=== PATIENT | male | born 1985 | race Caucasian/White ===

== ENCOUNTER 2016-11-04 18:23 | Outpatient (CLI) | payer MEDICAID | END 2016-11-04 18:24 | disposition critical access hospital (66) | LOC: EMS 18:23 | PROVIDERS: ATTEND Surgery | DX: S09.90XA Unspecified injury of head, initial encounter (principal); W18.30XA Fall on same level, unspecified, initial encounter; Y93.01 Activity, walking, marching and hiking | CPT/HCPCS: A0425; A0429 ==

== ENCOUNTER 2016-11-04 18:46 | Emergency (ER) | payer MEDICAID ==
--- NOTE | 2016-11-04 18:57 | ED Physician Documentation ---
PD HPI HEAD INJURY - Stated complaint Stated Complaint: GLF - Chief complaint Chief Complaint: Neuro - History obtained from History obtained from: Patient - History of Present Illness Mechanism of head injury: Fell (he had been drinking last night and says he fell as he was walking home, struck head. Does not remember it well. Today with feeling of lightheaded, slightly confused, and significant headache right side. No history of migraines per se.) Where head injury occurred: Street Timing - onset: Last night Associated symptoms: LOC (unsure), AMS (he feels lightheaded and slightly slow thinking today). No: Nausea / vomiting, Neck pain Symptoms worsen with: Palpation Contributing factors: Intoxicated (last night), Other (he had resumed a prior antidepressant 3 days ago, had stopped it a few months ago but wanted to be back on it. Resumed prior dose.). No: Anticoagulated Similar symptoms before: Has not had sx before Recently seen: Not recently seen Review of Systems Constitutional: denies: Fever, Chills Nose: denies: Rhinorrhea / runny nose, Congestion Throat: denies: Sore throat Cardiac: denies: Chest pain / pressure Respiratory: denies: Cough GI: reports: Nausea. denies: Abdominal Pain, Vomiting, Diarrhea Skin: denies: Abrasion (s), Laceration (s) Musculoskeletal: denies: Neck pain, Back pain Neurologic: reports: Confused, Headache, Head injury. denies: Focal weakness, Numbness, Near syncope PD PAST MEDICAL HISTORY - Past Medical History Cardiovascular: None Respiratory: None Neuro: None Endocrine/Autoimmune: None Psych: Depression, Anxiety - Past Surgical History Past Surgical History: No General: Other - Present Medications Home Medications: Ambulatory Orders Medication Instructions Recorded Confirmed FLUoxetine [PROzac] 20 mg PO DAILY 04/05/16 11/04/16 Hydrocodone/Acetaminophen [Sidney 1 each PO Q6H PRN #15 tablet 11/04/16 5-325 Tablet] Ondansetron Odt [Zofran] 4 mg TL Q6H PRN #15 tablet 11/04/16 - Allergies Allergies/Adverse Reactions: Allergies Allergy/AdvReac Type Severity Reaction Status Date / Time venom-honey bee Allergy Intermediate Edema Verified 04/05/16 20:39 [bee venom (honey bee)] - Social History Does the pt smoke?: Yes Smoking Status: Current every day smoker Does the pt drink ETOH?: Yes Does the pt have substance abuse?: Yes - Immunizations Immunizations are current?: Yes Immunizations: TDAP current <10years - POLST Patient has POLST: No PD ED PE NORMAL - Vitals Vital signs reviewed: Yes - General General: Alert and oriented X 3, No acute distress, Well developed/nourished - HEENT HEENT: PERRL, EOMI, Pharynx benign, Other (tender with small swelling right temporal area. 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 No: Normal affect (somewhat anxious) Results - Vitals Vitals: Vital Signs - 24 hr 11/04/16 11/04/16 18:47 20:14 Temperature 37.0 C Heart Rate 65 68 Respiratory 16 18 Rate Blood Pressure 158/92 H 135/64 H O2 Saturation 99 99 Oxygen O2 Source Room air - Rads (name of study) head CT Radiology: Prelim report reviewed, EMP read contemporaneously (no acute findings ) PD MEDICAL DECISION MAKING - ED course Complexity details: considered differential (he had struck head when fell last night so may have some concussive symptoms. He had resumed prior antidepressant 3 days ago, so could have some lightheaded from that. And also had drank heavily so some hangover, plus mix with the antidepressant. So several potential causes. Head CT is okay. He does have some anxiety overlay. Main issue is headache so treating for that. Rest should taper down symptoms. ), d/w patient Departure - Departure Disposition: 01 Home, Self Care Clinical Impression: Light-headed feeling, Medication side effect Headache Qualifiers: Headache type: unspecified Headache chronicity pattern: acute headache Intractability: not intractable Qualified Code(s): R51 - Headache Mild concussion Qualifiers: Encounter type: initial encounter Loss of consciousness presence/duration: without LOC Qualified Code(s): S06.0X0A - Concussion without loss of consciousness, initial encounter Condition: Stable Record reviewed to determine appropriate education?: Yes Instructions: ED Cephalgia Unspecified, ED Concussion Prescriptions: Hydrocodone/Acetaminophen [Sidney 5-325 Tablet] 1 each PO Q6H PRN #15 tablet PRN Reason: Pain Ondansetron Odt [Zofran] 4 mg TL Q6H PRN #15 tablet PRN Reason: Nausea / Vomiting Comments: Your symptoms may be from the head injury last night, so mild concussive symptoms. It could also be somewhat from resuming your antidepressant (combined with some alcohol last night) can give the same type of symptoms. These usually taper down once on the medication again a week. Drink lots of fluids. Zofran if needed for nausea. Tylenol or hydrocodone as needed for headache, though for short term only so as to not give more side effects. Avoid alcohol the next week or so. The symptoms from either mild head injury or the new medication would both improved over the next few days; recheck if they do not. Discharge Date/Time: 11/04/16 20:29
[2016-11-04] MEDS ORDERED: ACETAMINOPHEN 325 MG TABLET PO STA (19:07)
[2016-11-04] MEDS ORDERED: LORazepam 0.5 MG TABLET PO STA (19:07)
[2016-11-04] MEDS ORDERED: ONDANSETRON ODT 4 MG TABLET TL STA (19:07)
[2016-11-04] MEDS ORDERED: LORazepam 0.5 MG TABLET ONE (19:14)
[2016-11-04] MEDS ORDERED: ONDANSETRON ODT 4 MG TABLET ONE (19:15)
[2016-11-04] MEDS ORDERED: ACETAMINOPHEN 325 MG TABLET PO ONE (19:15)
--- NOTE | 2016-11-04 19:46 | CT Preliminary Report ---
Exam: CT Head W/O IMPRESSION: Normal head CT. [facility] SITE ID: [id number]
--- NOTE | 2016-11-04 19:49 | CT Report ---
EXAM: CT HEAD EXAM DATE: 11/04/2016 07:25 PM. CLINICAL HISTORY: Fall with head injury overnight. Headache/Shaky. COMPARISON: None. TECHNIQUE: Multiaxial CT images were obtained from the foramen magnum to the vertex. IV contrast: Non e. Reformats: Coronal. In accordance with CT protocol optimization, one or more of the following dose reduction techniques w ere utilized for this exam: automated exposure control, adjustment of mA and/or KV based on patient s ize, or use of iterative reconstructive technique. FINDINGS: Parenchyma: No intraparenchymal hemorrhage. No evidence of mass, midline shift, or CT findings of inf arction. Zaragoza-white differentiation is distinct. Extraaxial Spaces: Normal for age. No subdural or epidural collections identified. Ventricles: Normal in size and position. Sinuses: Imaged paranasal sinuses, orbits, and mastoids show no significant abnormality. Bones: No evidence of fracture or calvarial defect. Other: None. IMPRESSION: Normal head CT. [facility] Referring Provider Line: [phone] SITE ID: [id number]
[2016-11-04] MEDS ORDERED: HYDROcod/ACETAM 5/325 MG TABLET PO STA (20:08)
[2016-11-04] MEDS ORDERED: HYDROcod/ACET 5/325 Prepack 6 PO ONE ×2 (20:08→20:10)
[2016-11-04] MEDS ORDERED: HYDROcod/ACETAM 5/325 MG TABLET ONE (20:09)
[2016-11-04 20:15] VITALS: BP 135/64
== END 2016-11-04 20:29 | disposition home or self-care (01) ==
LOC: EDUNIT# → ED 18:46
DX: S06.0X0A Concussion without loss of consciousness, initial encounter (principal); W18.30XA Fall on same level, unspecified, initial encounter; Y93.01 Activity, walking, marching and hiking; Y92.410 Unspecified street and highway as the place of occurrence of the external cause; R51 Headache; R42 Dizziness and giddiness; T43.225A Adverse effect of selective serotonin reuptake inhibitors, initial encounter; F41.9 Anxiety disorder, unspecified; F17.200 Nicotine dependence, unspecified, uncomplicated
CPT/HCPCS: 70450; 99283; 99284; A9270; Q0162

== ENCOUNTER 2017-02-06 09:22 | Emergency (ER) | payer MEDICAID ==
[2017-02-06 09:33] VITALS: BP 122/71
[2017-02-06] MEDS ORDERED: AMOXICILLIN 250 MG CAPSULE PO STA (12:07)
[2017-02-06] MEDS ORDERED: DEXAMETHASONE 10 MG/ML VIAL PO STA (12:07)
[2017-02-06] MEDS ORDERED: AMOXICILLIN 250 MG CAPSULE PO ONE (12:19)
[2017-02-06] MEDS ORDERED: DEXAMETHASONE 10 MG/ML VIAL ONE (12:19)
[2017-02-06] MEDS ORDERED: CHERRY SYRUP 10 ML UDC PO ONE (12:19)
--- NOTE | 2017-02-06 12:29 | ED Physician Documentation ---
History of Present Illness - Stated complaint Stated Complaint: RT SIDE FACE SWELLING - Chief complaint Chief Complaint: Heent - Additonal information Additional information: hx from pt 31 male upper right premolar decay and pain with facial swelling has a dentist and will call to schedule Review of Systems Constitutional: denies: Fever Throat: reports: Dental pain / toothache Immunocompromised: denies: Immunocompromised PD PAST MEDICAL HISTORY - Past Medical History Past Medical History: No Cardiovascular: None Respiratory: None Neuro: None Endocrine/Autoimmune: None Psych: Depression, Anxiety - Past Surgical History Past Surgical History: Yes General: Other - Present Medications Home Medications: Ambulatory Orders Medication Instructions Recorded Confirmed Amoxicillin 500 mg PO Q8H #30 capsule 02/06/17 Ibuprofen [Motrin] 400 mg PO Q6H PRN #30 tablet 02/06/17 traMADol [Ultram] 50 mg PO Q6H PRN #6 tablet 02/06/17 - Allergies Allergies/Adverse Reactions: Allergies Allergy/AdvReac Type Severity Reaction Status Date / Time venom-honey bee Allergy Intermediate Edema Verified 04/05/16 20:39 [bee venom (honey bee)] - Social History Does the pt smoke?: Yes Smoking Status: Current every day smoker Does the pt drink ETOH?: Yes Does the pt have substance abuse?: No - Immunizations Immunizations are current?: Yes Immunizations: TDAP current <10years - POLST Patient has POLST: No PD ED PE NORMAL - Vitals Vital signs reviewed: Yes - HEENT HEENT: Other (no trismus, right upper premolar decay and TTP without visible abscess to drain, mild facial swelling to upper lip and cheek region, no sublingual) - Cardiac Cardiac: RRR - Respiratory Respiratory: No respiratory distress, Clear bilaterally - Neuro Neuro: Alert and oriented X 3 Results - Vitals Vitals: Vital Signs - 24 hr 02/06/17 09:31 Temperature 37.1 C Heart Rate 75 Respiratory 16 Rate Blood Pressure 122/71 O2 Saturation 100 Oxygen O2 Source Room air Departure - Departure Disposition: 01 Home, Self Care Clinical Impression: Dental infection Condition: Good Instructions: ED Dental Abscess Facial Cellulitis Prescriptions: Amoxicillin 500 mg PO Q8H #30 capsule Ibuprofen [Motrin] 400 mg PO Q6H PRN #30 tablet PRN Reason: Pain traMADol [Ultram] 50 mg PO Q6H PRN #6 tablet PRN Reason: Severe Pain Comments: Please follow up with your dentist as soon as possible Forms: Activity restrictions
== END 2017-02-06 12:43 | disposition home or self-care (01) ==
LOC: ED 09:22
DX: K04.7 Periapical abscess without sinus (principal); F17.200 Nicotine dependence, unspecified, uncomplicated
CPT/HCPCS: 99283; A9270

== ENCOUNTER 2017-08-09 08:55 | Emergency (ER) | payer MEDICAID ==
[2017-08-09 09:02] VITALS: BP 144/95
--- NOTE | 2017-08-09 10:03 | ED Physician Documentation ---
PD HPI HEENT - Stated complaint Stated Complaint: SWOLLEN RT SIDE FACE - Chief complaint Chief Complaint: Heent - History obtained from History obtained from: Patient - History of Present Illness Timing - onset: How many days ago (3) Timing - duration: Days (3) Timing - details: Gradual onset, Still present Location: Tooth Improves: Medication, Heat Associated symptoms: Facial swelling Similar symptoms before: Diagnosis (abcessed tooth) Recently seen: Not recently seen - Additional information Additional information: 32-year-old previously well male has developed pain and swelling in his mouth and now swelling in his face related to a bad tooth on the right upper. He has had something similar to this happen to him previously with the same tooth. He has a broken tooth and a second tooth over the top of that. He does have a bubble in the roof of his mouth that he can feel is tender. Review of Systems Constitutional: denies: Fever Eyes: denies: Decreased vision Ears: denies: Ear pain Nose: denies: Rhinorrhea / runny nose, Congestion Throat: reports: Dental pain / toothache, Oral lesions / sores. denies: Sore throat Cardiac: denies: Chest pain / pressure Respiratory: denies: Dyspnea, Cough GI: denies: Vomiting PD PAST MEDICAL HISTORY - Past Medical History Cardiovascular: None Respiratory: None Neuro: None Endocrine/Autoimmune: None Psych: Depression, Anxiety - Past Surgical History Past Surgical History: Yes General: Other - Present Medications Home Medications: Ambulatory Orders Medication Instructions Recorded Confirmed Amoxicillin 875 mg PO BID #20 tablet 08/09/17 - Allergies Allergies/Adverse Reactions: Allergies Allergy/AdvReac Type Severity Reaction Status Date / Time venom-honey bee Allergy Intermediate Edema Verified 08/09/17 09:02 [bee venom (honey bee)] - Social History Does the pt smoke?: Yes Smoking Status: Current every day smoker Does the pt drink ETOH?: Yes Does the pt have substance abuse?: No - Immunizations Immunizations are current?: Yes Immunizations: TDAP current <10years - POLST Patient has POLST: No PD ED PE NORMAL - Vitals Vital signs reviewed: Yes (hypertensive ) - General General: Alert and oriented X 3, No acute distress, Well developed/nourished - HEENT HEENT: Atraumatic, PERRL, EOMI, Other (There is tympanosclerosis bilaterally worse on the right. There is a bad tooth #7 that is broken and overlying a second tooth. There is an area on the roof of the mouth that is swollen and flutcuant without drainage. ) - Neck Neck: Supple, no meningeal sign, No bony TTP - Cardiac Cardiac: RRR, No murmur - Respiratory Respiratory: No respiratory distress, Clear bilaterally - Derm Derm: Normal color, Warm and dry, No rash - Extremities Extremities: No deformity, No edema - Neuro Neuro: Alert and oriented X 3, No motor deficit, No sensory deficit, Normal speech Eye Opening: Spontaneous Motor: Obeys Commands Verbal: Oriented GCS Score: 15 - Psych Psych: Normal mood, Normal affect PD ED PE EXPANDED - HEENT HEENT Visual: 1 - abscess, deformity, tenderness 2 - abscess (fluctuanct) Results - Vitals Vitals: Vital Signs - 24 hr 08/09/17 08:59 Temperature 36.7 C Heart Rate 86 Respiratory 15 Rate Blood Pressure 144/95 H O2 Saturation 100 Oxygen O2 Source Room air - Labs Labs: Microbiology 08/09/17 10:00 Wound Culture - Preliminary Abscess Procedures - Abscess I&D (location) roof of mouth Preparation: Other (lollicaine) Incision: Needle aspiration, Purulent drainage, Culture obtained Other: Pt tolerated well, Antibiotic prescribed PD MEDICAL DECISION MAKING - ED course Complexity details: re-evaluated patient, considered differential, d/w patient ED course: 32-year-old male with a dental abscess has fluctuance in the roof of his mouth and this area is anesthetized with a Lollie jean carlos and a #18-gauge needle was used to extract 3 cc of pus. This is cultured. Departure - Departure Disposition: 01 Home, Self Care Clinical Impression: Dental abscess Condition: Stable Instructions: ED Abscess Dental Follow-Up: [facility] [Provider Group] Prescriptions: Amoxicillin 875 mg PO BID #20 tablet Discharge Date/Time: 08/09/17 10:13
== END 2017-08-09 10:13 | disposition home or self-care (01) ==
LOC: ED 08:55
DX: K04.7 Periapical abscess without sinus (principal); F17.200 Nicotine dependence, unspecified, uncomplicated
CPT/HCPCS: 41800; 87070; 87205; 99283

== ENCOUNTER 2018-01-13 11:05 | Emergency (ER) | payer MEDICAID ==
--- NOTE | 2018-01-13 12:19 | XRAY Report ---
Reason: left hand injury Procedure Date: 01/13/2018 Accession Number: [id number] / [id number] Procedure: XR - Hand 3 View LT CPT Code: FULL RESULT: EXAM: LEFT HAND RADIOGRAPHY EXAM DATE: 01/13/2018 11:34 AM. CLINICAL HISTORY: Fall on outstretched hand injury 3 days ago. Unable to move thumb. COMPARISON: XR HAND MIN 3 VIEWS 10/30/2007. TECHNIQUE: 3 views. FINDINGS: Bones: No definite fracture demonstrated. Joints: Normal. No subluxations. Soft Tissues: Tiny 1 mm calcific density projecting volar to the ulnar aspect of left thumb interphalangeal joint. IMPRESSION: 1. Tiny nonspecific 1 mm calcific density adjacent to left thumb interphalangeal joint. Question soft tissue calcification. Cannot exclude a tiny avulsion. No donor site is demonstrated. [facility]
[2018-01-13 12:44] LABS: BASOPHILS % (AUTO) 0.4 %; EOSINOPHILS % (AUTO) 0.2 %; HGB - HEMOGLOBIN 15.8 g/dL (14.0-18.0); LYMPHOCYTES # (AUTO) 1.2 10^3/uL (1.5-3.5); LYMPHOCYTES % (AUTO) 11.7 %; MEAN CORPUSCULAR HEMOGLOBIN 32.6 pg (27.0-31.0); MEAN CORPUSCULAR HGB CONC 34.7 g/dL (32.0-36.0); MEAN CORPUSCULAR VOLUME 93.9 fL (80.0-94.0); MEAN PLATELET VOLUME 7.4 fL (7.4-11.4); MONOCYTES # (AUTO) 0.6 10^3/uL (0.0-1.0); MONOCYTES % (AUTO) 6.3 %; NEUTROPHILS # (AUTO) 8.2 10^3/uL (1.5-6.6); NEUTROPHILS % (AUTO) 81.4 %; PLT - PLATELET COUNT 271 10^3/uL (130-450); RED BLOOD COUNT 4.85 10^6/uL (4.70-6.10); RED CELL DISTRIBUTION WIDTH 12.8 % (12.0-15.0)
[2018-01-13 12:58] LABS: ALBUMIN 4.9 g/dL (3.2-5.5); ALBUMIN/GLOBULIN RATIO 1.6 (1.0-2.2); BILIRUBIN,TOTAL 0.9 mg/dL (0.2-1.0); CALCIUM 9.7 mg/dL (8.5-10.3); CREATININE 0.9 mg/dL (0.6-1.2)
[2018-01-13] MEDS ORDERED: ONDANSETRON ODT 4 MG TABLET TL STA (13:04)
--- NOTE | 2018-01-13 13:06 | ED Physician Documentation ---
History of Present Illness - Stated complaint Stated Complaint: THUMB INJ,SHAKY,VOMITTING - Chief complaint Chief Complaint: General - History obtained from History obtained from: Patient - History of Present Illness Timing: How many days ago (3) Pain level max: 5 Pain level now: 5 Improved by: rest Worsened by: movement - Additonal information Additional information: Patient is a 32-year-old male who presents to the emergency department left thumb injury after falling a few days ago. States continued swelling and pain with movement of the thumb. He is right-handed. Has had a prior dislocation of the thumb on that side. He also states that he began to have nausea vomiting and a small amount of diarrhea 3 days ago. States not eating and drinking well. No recent antibiotics. No recent travel. No recent camping. No fevers. No abdominal pain. Review of Systems Constitutional: denies: Fever, Chills Ears: denies: Ear pain Nose: denies: Rhinorrhea / runny nose, Congestion Throat: denies: Sore throat Cardiac: denies: Chest pain / pressure Respiratory: denies: Cough GI: reports: Nausea, Vomiting, Diarrhea Skin: denies: Rash Musculoskeletal: denies: Neck pain, Back pain Neurologic: denies: Headache PD PAST MEDICAL HISTORY - Past Medical History Past Medical History: Yes Cardiovascular: None Respiratory: None Endocrine/Autoimmune: None Psych: Depression, Anxiety - Past Surgical History Past Surgical History: Yes General: Other - Present Medications Home Medications: Ambulatory Orders Medication Instructions Recorded Confirmed Amoxicillin 875 mg PO BID #20 tablet 08/09/17 Meloxicam [Mobic] 15 mg PO DAILY PRN #20 tablet 01/13/18 Ondansetron Odt [Zofran] 4 mg TL Q6H PRN #10 tablet 01/13/18 - Allergies Allergies/Adverse Reactions: Allergies Allergy/AdvReac Type Severity Reaction Status Date / Time venom-honey bee Allergy Intermediate Edema Verified 08/09/17 09:02 [bee venom (honey bee)] - Social History Does the pt smoke?: Yes Smoking Status: Current every day smoker Does the pt drink ETOH?: Yes Does the pt have substance abuse?: No - Immunizations Immunizations are current?: Yes Immunizations: TDAP current <10years - POLST Patient has POLST: No PD ED PE NORMAL - Vitals Vital signs reviewed: Yes - General General: Alert and oriented X 3, No acute distress - HEENT HEENT: Moist mucous membranes - Neck Neck: Supple, no meningeal sign - Cardiac Cardiac: RRR - Respiratory Respiratory: No respiratory distress, Clear bilaterally - Abdomen Abdomen: Soft, Non tender, Non distended - Derm Derm: Warm and dry - Extremities Extremities: Other (L thumb - Tender to palpation over the thenar eminence. Mild swelling. No gross deformity. Neurovascularly intact. No snuffbox tenderness.) - Neuro Neuro: Alert and oriented X 3 - Psych Psych: Normal mood, Normal affect Results - Vitals Vitals: Vital Signs - 24 hr 01/13/18 01/13/18 01/13/18 11:19 12:49 13:39 Temperature 37.1 C 37.1 C Heart Rate 58 L 96 56 L Respiratory 18 18 18 Rate Blood Pressure 154/87 H 156/91 H 139/79 H O2 Saturation 100 99 98 Oxygen O2 Source Room air - Labs Labs: Laboratory Tests 01/13/18 01/13/18 12:30 12:30 WBC 10.0 RBC 4.85 Hgb 15.8 Hct 45.5 MCV 93.9 MCH 32.6 H MCHC 34.7 RDW 12.8 Plt Count 271 MPV 7.4 Neut # (Auto) 8.2 H Lymph # (Auto) 1.2 L [place] # (Auto) 0.6 Eos # (Auto) 0.0 Baso # (Auto) 0.0 Absolute Nucleated RBC 0.00 Nucleated RBC % 0.0 Sodium 138 Potassium 4.3 Chloride 102 Carbon Dioxide 25 Anion Gap 11.0 BUN 18 Creatinine 0.9 Estimated GFR (MDRD) 98 Glucose 97 Calcium 9.7 Total Bilirubin 0.9 AST 48 H ALT 30 Alkaline Phosphatase 20 L Total Protein 8.0 Albumin 4.9 Globulin 3.1 Albumin/Globulin Ratio 1.6 Lipase 27 - Rads (name of study) Left hand x-ray Radiology: Prelim report reviewed, EMP read contemporaneously, See rad report ( Tiny nonspecific 1 mm calcific density adjacent to left thumb interphalangeal joint. Question soft tissue calcification. Cannot exclude a tiny avulsion. No donor site is demonstrated. ) PD MEDICAL DECISION MAKING - ED course Complexity details: reviewed results, re-evaluated patient, considered differential, d/w patient ED course: Patient is a 32-year-old male who presents to the emergency department with a left thumb sprain. Possible small avulsion fracture on x-ray, though appears old. Placed in a Velcro thumb spica for comfort. Also has had nausea and vomiting and diarrhea. Tolerating p.o. without difficulty after Zofran will prescribe this for home. He is well-appearing, nontoxic. Afebrile. Abdomen is soft, nontender nondistended on serial exam. Patient counseled regarding signs and symptoms for which I believe and urgent re-evaluation would be necessary. Patient with good understanding of and agreement to plan and is comfortable going home at this time This document was made in part using voice recognition software. While efforts are made to proofread this document, sound alike and grammatical errors may occur. - Sepsis Event Vital Signs: Vital Signs - 24 hr 01/13/18 01/13/18 01/13/18 11:19 12:49 13:39 Temperature 37.1 C 37.1 C Heart Rate 58 L 96 56 L Respiratory 18 18 18 Rate Blood Pressure 154/87 H 156/91 H 139/79 H O2 Saturation 100 99 98 Oxygen O2 Source Room air Departure - Departure Disposition: 01 Home, Self Care Clinical Impression: Sprain of hand, thumb, left Qualifiers: Encounter type: initial encounter Sprain of finger site: metacarpophalangeal joint Qualified Code(s): S63.642A - Sprain of metacarpophalangeal joint of left thumb, initial encounter Condition: Good Instructions: ED Sprain Finger Follow-Up: your,doctor in 1 week [Other] Prescriptions: Meloxicam [Mobic] 15 mg PO DAILY PRN #20 tablet PRN Reason: pain Ondansetron Odt [Zofran] 4 mg TL Q6H PRN #10 tablet PRN Reason: Nausea / Vomiting Comments: Wear the splint as needed for comfort. Return if you worsen. Follow-up with your doctor for further care. Drink plenty of fluids and rest. Discharge Date/Time: 01/13/18 13:39
[2018-01-13 13:41] VITALS: BP 139/79
== END 2018-01-13 13:39 | disposition home or self-care (01) ==
LOC: ED 11:05
DX: F17.200 Nicotine dependence, unspecified, uncomplicated (principal); S63.642A Sprain of metacarpophalangeal joint of left thumb, initial encounter; W19.XXXA Unspecified fall, initial encounter; R11.2 Nausea with vomiting, unspecified; R19.7 Diarrhea, unspecified
CPT/HCPCS: 36415; 73130; 80053; 83690; 85025; 99283; Q0162

== ENCOUNTER 2021-12-09 07:17 | Emergency (ER) | payer MEDICAID, OTHER ==
[2021-12-09] MEDS ORDERED: HYDROcod/ACETAM 5/325 MG TABLET PO STA (07:53)
[2021-12-09] MEDS ORDERED: NAPROXEN 250 MG TABLET PO STA (07:53)
[2021-12-09] MEDS ORDERED: DEXAMETHASONE 10 MG/ML VIAL PO STA (07:53)
[2021-12-09] MEDS ORDERED: CHERRY SYRUP 10 ML UDC PO ONE (07:53)
--- NOTE | 2021-12-09 07:53 | ED Physician Documentation ---
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 No particular injury to the foot. Onset of redness and pain and swelling. He attributed it to a sprain or such at work but symptoms are increasing.) Timing - onset: How many days ago (4) Timing - duration: Days (4) Timing - details: Gradual onset, Still present (increasing each day.) Improved by: Rest. No: Meds (ibuprofen PRN.) Worsened by: Moving, Palpating Associated symptoms: Swelling, Discolored (redness base of great toe). No: Weakness, Numbness Similar symptoms before: Has not had sx before Review of Systems Constitutional: denies: Fever, Chills Nose: denies: Rhinorrhea / runny nose, Congestion Throat: denies: Sore throat Respiratory: denies: Cough GI: denies: Nausea, Vomiting, Diarrhea Skin: denies: Abrasion (s), Laceration (s) Neurologic: denies: Focal weakness, Numbness PD PAST MEDICAL HISTORY - Past Medical History Cardiovascular: None Respiratory: None Endocrine/Autoimmune: None Psych: Depression, Anxiety Musculoskeletal: None, Other (no hisotry of gout) - Past Surgical History Past Surgical History: Yes General: Other - Present Medications Home Medications: Ambulatory Orders Medication Instructions Recorded Confirmed Amoxicillin 875 mg PO BID #20 tablet 08/09/17 Meloxicam [Mobic] 15 mg PO DAILY PRN #20 tablet 01/13/18 Ondansetron Odt [Zofran] 4 mg TL Q6H PRN #10 tablet 01/13/18 HYDROcod/ACETAM 5/325 [Kelso 5/325] 1 ea PO Q6H PRN #15 tablet 12/09/21 Naproxen 500 mg PO BID #20 tab.sr 12/09/21 - Allergies Allergies/Adverse Reactions: Allergies Allergy/AdvReac Type Severity Reaction Status Date / Time venom-honey bee Allergy Intermediate Edema Verified 08/09/17 09:02 [bee venom (honey bee)] - Social History Does the pt smoke?: Yes Smoking Status: Current every day smoker Does the pt drink ETOH?: Yes Does the pt have substance abuse?: No - Immunizations Immunizations are current?: Yes Immunizations: TDAP current <10years - POLST Patient has POLST: No PD ED PE NORMAL - Vitals Vital signs reviewed: Yes - Derm Derm: Normal color, Warm and dry - Extremities Extremities: Other (The left foot shows marked tenderness with some mild redness and warmth at the medial MTP of the great toe. The nailbed is without any tenderness or redness. Thickened fungal nail without any tenderness. Dried skin between the toes and on the ball of the foot but no splits nor signs of infection.) - Neuro Neuro: Alert and oriented X 3, No motor deficit, No sensory deficit Results - Vitals Vitals: Vital Signs - 24 hr 12/09/21 12/09/21 07:25 08:33 Temperature 37.2 C Heart Rate 62 76 Respiratory 18 16 Rate Blood Pressure 144/80 H 135/78 H O2 Saturation 100 98 Oxygen O2 Source Room air - Rads (name of study) left foot Radiology: Prelim report reviewed (no acute process. ), See rad report PD MEDICAL DECISION MAKING - ED course Complexity details: reviewed results, considered differential (The location and character of the pain and tenderness seems most likely gout or arthritis of the joint. We will treat with anti-inflammatories and pain medicines. X-ray to evaluate for bony abnormalities.), d/w patient Departure - Departure Disposition: 01 Home, Self Care Clinical Impression: Pain of left great toe Gout attack Qualifiers: Gout site: toe Gout etiology: unspecified cause Laterality: left Qualified Code(s): M10.9 - Gout, unspecified Condition: Stable Record reviewed to determine appropriate education?: Yes Instructions: ED Arthritis Gout Prescriptions: Naproxen 500 mg PO BID #20 tab.sr HYDROcod/ACETAM 5/325 [Kelso 5/325] 1 ea PO Q6H PRN #15 tablet PRN Reason: Pain Comments: You have a very slight amount of arthritis at the joint on your toe. However your symptoms and description sound much more likely to be an inflammatory arthritis such as gout. If this is a single episode and does not recur for a while then just treating the current symptoms and allowing it to get better is the main approach. If you have recurring episodes often in the near future than there are other treatments or medications to try to reduce the occurrence. At this point I would suggest some anti-inflammatories and we can try a different 1 of higher dose naproxen 2-3 times daily with food for the next 5 to 7 days. To that add Tylenol or hydrocodone/acetaminophen if needed for worse pain. Recheck if not improved well over the next several days and resolved by 3 to 5 days. Return if worse. I transmitted your prescriptions to [facility] pharmacy in [place]. I am prescribing a short course of narcotic pain medication for you. These are potentially dangerous and addictive medications that should be used carefully. These medications may constipate you. Take an [id number] stool softener such as docusate twice daily with plenty of water while taking these medi cations. If you go 24 hours without a bowel movement, take [id number] MiraLAX, per package instructions. Do not drink or drive while taking these medications. If you received narcotic or sedating medications while in the emergency department do not drive for 24 hours. Store this medication in a safe, secure place and out of reach of children. It is a violation of federal law to give or sell this medication to another person or to use in a manner other than prescribed. The ED will not refill narcotic prescriptions, including prescriptions lost or stolen. You can dispose of unwanted medications at the [facility] office or at several pharmacies such as [facility]. Discharge Date/Time: 12/09/21 08:34
--- NOTE | 2021-12-09 08:33 | XRAY Report ---
PROCEDURE: Toe(s) LT INDICATIONS: LT MTP PAIN FOR FEW DAYS TECHNIQUE: 3 views of the toe(s) acquired. COMPARISON: None FINDINGS: Bones: No fractures or dislocations. No suspicious bony lesions. Soft tissues: No suspicious soft tissue densities. IMPRESSION: Normal left toes Reviewed by: Saúl Fox on 12/09/2021 8:32 AM PDT Approved by: Saúl Fox on 12/09/2021 8:32 AM PDT Station ID: [id number]
[2021-12-09 08:35] VITALS: BP 135/78
== END 2021-12-09 08:34 | disposition home or self-care (01) ==
LOC: ED 07:17
DX: M10.9 Gout, unspecified (principal); M19.072 Primary osteoarthritis, left ankle and foot; M79.675 Pain in left toe(s); F17.200 Nicotine dependence, unspecified, uncomplicated
CPT/HCPCS: 73660; 99283; A9270

== ENCOUNTER 2023-03-28 13:09 | Outpatient (CLI) | payer OTHER ==
[2023-03-28 17:50] LABS: BASOPHILS % (AUTO) 0.5 %; EOSINOPHILS # (AUTO) 0.2 10^3/uL (0.0-0.7); HGB - HEMOGLOBIN 14.5 g/dL (14.0-18.0); LYMPHOCYTES # (AUTO) 1.8 10^3/uL (1.5-3.5); LYMPHOCYTES % (AUTO) 24.4 %; MEAN CORPUSCULAR HEMOGLOBIN 31.3 pg (27.0-31.0); MEAN CORPUSCULAR HGB CONC 33.7 g/dL (32.0-36.0); MEAN CORPUSCULAR VOLUME 92.7 fL (80.0-94.0); MEAN PLATELET VOLUME 10.2 fL (7.4-11.4); MONOCYTES # (AUTO) 0.5 10^3/uL (0.0-1.0); MONOCYTES % (AUTO) 7.3 %; NEUTROPHILS # (AUTO) 4.8 10^3/uL (1.5-6.6); NEUTROPHILS % (AUTO) 65.5 %; PLT - PLATELET COUNT 324 10^3/uL (130-450); RED BLOOD COUNT 4.64 10^6/uL (4.70-6.10); RED CELL DISTRIBUTION WIDTH 11.9 % (12.0-15.0); WHITE BLOOD COUNT 7.4 x10^3/uL (4.8-10.8)
[2023-03-28 18:27] LABS: ALBUMIN 4.6 g/dL (3.2-5.5); ALBUMIN/GLOBULIN RATIO 1.8 (1.0-2.2); ALKALINE PHOSPHATASE 21 IU/L (42-121); ALT ALANINE AMINOTRANSFERASE 42 IU/L (10-60); AST ASPARTATE AMINOTRANSFERASE 30 IU/L (10-42); BILIRUBIN,TOTAL 0.5 mg/dL (0.2-1.0); BUN - BLOOD UREA NITROGEN 13 mg/dL (6-20); CALCIUM 9.5 mg/dL (8.5-10.3); CARBON DIOXIDE - CO2 31 mmol/L (21-32); CHLORIDE 104 mmol/L (101-111); CHOL/HDL RATIO 2.8 (<5.0); CHOLESTEROL 133 mg/dL; CREATININE 0.9 mg/dL (0.6-1.3); GFR - MDRD 95 (>89); GLUCOSE 107 mg/dL (74-104); HDL CHOLESTEROL 48 mg/dL; LDL CHOLESTEROL,CALCULATED 66 mg/dL; LDL/HDL RATIO 1.4 (<3.6); POTASSIUM 3.7 mmol/L (3.5-4.5); SODIUM 140 mmol/L (135-145); TOTAL PROTEIN 7.1 g/dL (6.4-8.9); TRIGLYCERIDES 96 mg/dL (48-352); VLDL CHOLESTEROL 19 mg/dL
[2023-03-28 18:30] LABS: THYROID STIMULATING HORMONE 1.66 uIU/mL (0.34-5.60)
== END 2023-03-28 13:10 | disposition home or self-care (01) ==
LOC: LAB.N 13:09
PROVIDERS: ATTEND Nurse Practitioner Family
DX: Z00.00 Encounter for general adult medical examination without abnormal findings (principal)
CPT/HCPCS: 36415; 80053; 80061; 83721; 84443; 85025